=== PATIENT | female | born 1965 | race Hispanic/Latino ===

== ENCOUNTER → 2018-01-23 | Emergency (ER) | payer OTHER ==
[~2018-01-23] MED LIST: HYDROmorphone 0.5 MG/0.5 ML SYRINGE ONE
--- NOTE | 2018-01-24 07:24 | CT ---
CT HEAD NONCONTRAST: Date: 01/24/18 INDICATION: Post-traumatic injury, pain. FINDINGS: There is a prominent size left facial hematoma with surrounding edema extending into the left frontop arietal scalp. There is benign-appearing asymmetry of the lateral ventricular sizes, although no vent riculomegaly, mass effect, or midline shift. There is no acute intracranial hemorrhage. IMPRESSION: 1. No acute intracranial hemorrhage or mass effect. 2. Prominent left facial hematoma. POS: DONIS
--- NOTE | 2018-01-24 07:28 | CT ---
CT OF CERVICAL SPINE NONCONTRAST: INDICATION: Posttraumatic neck pain, injury. FINDINGS: There is slight reversal of the normal cervical curvature. The craniocervical junction is intact. T here is no acute compression fracture or subluxation of the cervical spine. Partially imaged left fa cial hematoma is present. IMPRESSION: No acute fracture or subluxation within the cervical spine. POS: LARAK
--- NOTE | 2018-01-24 07:29 | CT ---
FACIAL BONES CT NONCONTRAST: Date: 01/24/18 INDICATION: Post-traumatic injury, pain. FINDINGS: There is a large left buccal region hematoma with surrounding edema. There is no retrobulbar hematoma or mass effect. The orbital schmitz are intact. No fracture of the maxillary sinuses. There is leftwar d nasal septal deviation with associated nasal septal spur. Nasal bones and zygomatic arches are inta ct. No fracture of the pterygoid plates is seen. No post-traumatic dislocation of either temporomandi bular joint. IMPRESSION: Large left facial hematoma, without evidence of a displaced facial fracture. POS: NWK
== END ==
LOC: MADERS 23:43
DX: S00.83XA Contusion of other part of head, initial encounter (principal); I10 Essential (primary) hypertension; E78.5 Hyperlipidemia, unspecified; F17.210 Nicotine dependence, cigarettes, uncomplicated; W22.8XXA Striking against or struck by other objects, initial encounter; Z79.899 Other long term (current) drug therapy
CPT/HCPCS: 70450; 70486; 72125; 96372; J1170

== ENCOUNTER 2019-02-10 07:50 | Emergency (ER) | payer OTHER, SELFPAY ==
[2019-02-10] MEDS ORDERED: Cyclobenzaprine 10 MG TAB ONE (08:19)
[2019-02-10] MEDS ORDERED: Ketorolac Tromethamine 60 MG/2 ML VIAL ONE (08:19)
== END 2019-02-10 08:50 | disposition home or self-care (01) ==
LOC: MADERS 07:50
DX: S39.82XA Other specified injuries of lower back, initial encounter (principal); E78.5 Hyperlipidemia, unspecified; I10 Essential (primary) hypertension; E78.00 Pure hypercholesterolemia, unspecified; F17.210 Nicotine dependence, cigarettes, uncomplicated; Z79.899 Other long term (current) drug therapy; X58.XXXA Exposure to other specified factors, initial encounter
CPT/HCPCS: 96372; 99406; J1885

== ENCOUNTER 2022-03-23 17:19 | Emergency (ER) | payer OTHER | END 2022-03-23 20:00 | disposition home or self-care (01) | LOC: MADERS 17:19 | DX: J06.9 Acute upper respiratory infection, unspecified (principal); I10 Essential (primary) hypertension; E11.9 Type 2 diabetes mellitus without complications; E78.5 Hyperlipidemia, unspecified; Z79.84 Long term (current) use of oral hypoglycemic drugs; Z79.899 Other long term (current) drug therapy; Z87.891 Personal history of nicotine dependence; Z20.822 Contact with and (suspected) exposure to COVID-19 | CPT/HCPCS: 71046; 87081; 87430; 87804; 93005; U0003; U0005 ==

== ENCOUNTER 2023-01-23 07:35 | Emergency (ER) | payer MEDICARE, MEDICAID ==
[2023-01-23] MEDS ORDERED: Lactated Ringer's 1,000 ML ONE ×2 (08:07→09:11)
[2023-01-23] MEDS ORDERED: Dicyclomine 20 MG/2 ML VIAL ONE (08:07)
[2023-01-23] MEDS ORDERED: Ondansetron PF 4 MG/2 ML Vial ONE (08:07)
[2023-01-23 08:42] LABS: #Basophils 0.1 thou/uL (0.0-0.2); #Eosinphils 0.2 thou/uL (0.0-0.7); #Lymphocytes 0.7 thou/uL (1.20-3.40); #Monocytes 0.4 thou/uL (0.11-0.59); #Neutrophils 4.6 thou/uL (1.40-6.50); %Basophils 1.5 % (0.0-1.0); %Eosinophils 3.6 % (0.0-10.0); %Lymphocytes 12.1 % (21.0-51.0); %Monocytes 7.2 % (0.0-10.0); %Neutrophils 75.5 % (42.0-75.0); Hematocrit 45.9 % (36.0-47.0); Hemoglobin 14.8 g/dL (12.0-16.0); Mean Corpuscular HGB CONC 32.3 g/dL (32.0-36.0); Mean Corpuscular Hemoglobin 30.7 pg (27.0-31.0); Mean Platelet Volume 8.4 fL (7.4-10.4); Platelet Count 280 10x3/uL (130-400); Red Blood Cell (RBC) Count 4.83 mill/uL (4.20-5.40)
[2023-01-23 09:03] LABS: ALT (SGPT) 33 U/L (8-55); AST (SGOT) 31 U/L (5-34); Albumin 4.4 g/dL (3.5-5.0); Alkaline Phosphatase 85 U/L (40-110); Anion Gap 17 mmol/L (10-20); BUN (Urea Nitrogen) 17 mg/dL (9.8-20.1); Bilirubin, Total 0.4 mg/dL (0.2-1.2); CK (CPK) 94 U/L (29-168); Calc. Creatinine Clearance 0 mL/min (70-130); Calcium 9.6 mg/dL (7.8-10.44); Carbon Dioxide 18 mmol/L (22-29); Chloride 107 mmol/L (98-107); Estimated GFR 70; Globulin 3.2 g/dL (2.4-3.5); Glucose 140 mg/dL (70-105); Lipase 16 U/L (8-78); Magnesium 1.9 mg/dL (1.6-2.6); Potassium 4.1 mmol/L (3.5-5.1); Protein, Total 7.6 g/dL (6.0-8.3); Sodium 138 mmol/L (136-145)
[2023-01-23] MEDS ORDERED: Lisinopril 10 MG TAB ONE (09:19)
[2023-01-23 09:59] LABS: Bilirubin Negative (Negative); Blood, Urine Small (Negative); Clarity Clear (Clear); Glucose, Urine (Dipstick) Negative (Negative); Ketone, Urine Negative (Negative); Leukocyte Negative (Negative); Nitrite Negative (Negative); Protein, Urine (Dipstick) > or equal to 300 mg/dL (Neg-Trace); Urobilinogen 0.2 mg/dL (Less than 2)
[2023-01-23 10:07] LABS: Bacteria/HPF 1+ HPF (None Seen); CAUTI Indications for Culture Pelvic or flank pain; RBC/HPF 0-3 HPF (0-3); WBC/HPF 0-3 HPF (0-3)
[2023-01-23 10:09] LABS: Urine Culture Reflex No No
== END 2023-01-23 10:24 | disposition home or self-care (01) ==
LOC: MADERS 07:35
DX: R11.10 Vomiting, unspecified (principal); R19.7 Diarrhea, unspecified; E86.0 Dehydration; R80.9 Proteinuria, unspecified; E11.9 Type 2 diabetes mellitus without complications; E78.5 Hyperlipidemia, unspecified; I10 Essential (primary) hypertension; E78.00 Pure hypercholesterolemia, unspecified; Z87.891 Personal history of nicotine dependence; Z79.899 Other long term (current) drug therapy; Z79.84 Long term (current) use of oral hypoglycemic drugs
CPT/HCPCS: 80053; 81001; 82550; 83605; 83690; 83735; 85025; 93005; 94760; 96361; 96372; 96374; J2405; J7120

== ENCOUNTER 2024-08-14 23:29 | Emergency (ER) | payer MEDICARE, MEDICAID ==
[2024-08-14 23:49] LABS: #Basophils 0.1 thou/uL (0.0-0.2); #Eosinophils 0.2 thou/uL (0.0-0.7); #Lymphocytes 3.6 thou/uL (1.20-3.40); #Monocytes 0.7 thou/uL (0.11-0.59); #Neutrophils 4.3 thou/uL (1.40-6.50); %Basophils 1.1 % (0.0-1.0); %Lymphocytes 40.4 % (21.0-51.0); %Monocytes 7.6 % (0.0-10.0); %Neutrophils 48.8 % (42.0-75.0); Hematocrit 42.5 % (36.0-47.0); Hemoglobin 13.1 g/dL (12.0-16.0); Mean Corpuscular HGB CONC 30.9 g/dL (32.0-36.0); Mean Corpuscular Hemoglobin 30.1 pg (27.0-31.0); Mean Corpuscular Volume 97.4 fl (78.0-98.0); Platelet Count 353 10x3/uL (130-400); RBC Distribution Width 12.3 % (11.5-14.5); Red Blood Cell (RBC) Count 4.37 mill/uL (4.20-5.40); White Blood Cell (WBC) Count 8.9 10x3/uL (4.8-10.8)
[2024-08-14] MEDS ORDERED: cloNIDine 0.1 MG TAB ONE (23:57)
[2024-08-14] MEDS ORDERED: Aspirin Chewable 81 MG TAB ONE (23:58)
[2024-08-14] MEDS ORDERED: Methocarbamol 500 MG TAB ONE (23:58)
[2024-08-15 00:08] LABS: ALT (SGPT) 28 U/L (Less than 34); AST (SGOT) 39 U/L (11-34); Albumin 3.9 g/dL (3.1-4.5); Alkaline Phosphatase 123 U/L (40-110); Anion Gap 15 mmol/L (10-20); BUN (Urea Nitrogen) 18 mg/dL (9.8-20.1); Bilirubin, Total 0.2 mg/dL (0.3-1.2); Calc. Creatinine Clearance 0 mL/min (70-130); Calcium 9.7 mg/dL (7.8-10.44); Carbon Dioxide 23 mmol/L (22-29); Chloride 107 mmol/L (98-107); Estimated GFR 96; Globulin 3.3 g/dL (2.4-3.5); Glucose 93 mg/dL (70-105); Potassium 3.9 mmol/L (3.5-5.1); Protein, Total 7.2 g/dL (6.0-8.3); Sodium 141 mmol/L (136-145)
[2024-08-15 00:09] LABS: Troponin I 0.018 ng/mL (< 0.028)
[2024-08-15] MEDS ORDERED: Lisinopril 10 MG TAB ONE (00:27)
[2024-08-15] MEDS ORDERED: Morphine 2 MG/ML VIAL ONE (00:28)
== END 2024-08-15 01:17 | disposition home or self-care (01) ==
LOC: MADERS 23:29
DX: S46.812A Strain of other muscles, fascia and tendons at shoulder and upper arm level, left arm, initial encounter (principal); I10 Essential (primary) hypertension; E11.9 Type 2 diabetes mellitus without complications; E78.5 Hyperlipidemia, unspecified; Z79.85 Long-term (current) use of injectable non-insulin antidiabetic drugs; Z79.899 Other long term (current) drug therapy; X58.XXXA Exposure to other specified factors, initial encounter
CPT/HCPCS: 71045; 80053; 84484; 85025; 93005; 94760; J2272